=== PATIENT | female | born 1965 ===

== ENCOUNTER 2016-12-20 16:11 | Emergency (ER) | payer SELFPAY ==
[2016-12-20] MEDS ORDERED: Ketorolac 30 MG/ML SDV IVPUSH ONE (17:38)
[2016-12-20] MEDS ORDERED: Sodium Chloride 0.9% 1,000 ML IV ONE (17:38)
--- NOTE | 2016-12-20 17:44 | EDM.PDOC ---
ED HPI GENERAL MEDICAL PROBLEM - General Chief Complaint: Upper Extremity Injury/Pain Stated Complaint: ARMPIT,DOWN ARM AND UP BACK SEVERE PAIN, [id number] Time Seen by Provider: 12/20/16 17:38 Source of Information: Reports: Patient History Limitations: Reports: No Limitations - History of Present Illness INITIAL COMMENTS - FREE TEXT/NARRATIVE: c/o 2 weeks h/o pain in left armpit area hurts to raise above shoulder, states hand is always numb, denies trauma, states pain constant throb with occasional sharp shooting when moves it, heat does help little, tried motrin with minimal relief, does not think it's heart pain which she long time ago, states is right handed. Left Arm Pain Score (Numeric/FACES): 5 - Related Data Allergies Allergy/AdvReac Type Severity Reaction Status Date / Time Penicillins Allergy Anaphylactic Verified 12/20/16 17:30 Shock Home Meds: Home Meds Pregabalin [Lyrica] 100 mg PO TID 12/20/16 [History] Sertraline HCl [Zoloft] 50 mg PO DAILY 12/20/16 [History] lamoTRIgine [Lamictal] 100 mg PO DAILY 12/20/16 [History] Review of Systems - Review of Systems Review Of Systems: ROS reveals no pertinent complaints other than HPI. ED EXAM, GENERAL - Physical Exam Exam: See Below Exam Limited By: No Limitations General Appearance: Alert, WD/WN, Mild Distress, Other (distraught) Ears: Hearing Grossly Normal Throat/Mouth: Normal Voice, No Airway Compromise Head: Atraumatic Neck: Non-Tender, Full Range of Motion Respiratory/Chest: No Respiratory Distress Cardiovascular: Regular Rate, Rhythm GI/Abdominal: Soft, Non-Tender Extremities: Other (tender R/P @ deltoid region, NV wnl, no gross D/D. ) Neurological: Alert, Oriented, Normal Cognition, Normal Gait, No Motor/Sensory Deficits Psychiatric: Normal Affect, Normal Mood Skin Exam: Warm, Dry, Normal Color Lymphatic: No Adenopathy Course - Vital Signs Last Recorded V/S: Last Vital Signs Temp 36.3 C 12/20/16 19:11 Pulse 91 12/20/16 19:11 Resp 18 12/20/16 19:11 BP 146/100 H 12/20/16 19:11 Pulse Ox 95 12/20/16 19:11 - Orders/Labs/Meds Orders: Active Orders 24 hr Category Date Time Status Chest 1V Frontal [CR] Urgent Exams 12/20/16 18:25 Taken Shoulder 1V Lt [CR] Urgent Exams 12/20/16 18:25 Taken Orphenadrine [Norflex] Med 12/20/16 19:30 Ordered 60 mg IM Q12H Sodium Chloride 0.9% [Normal Saline] 1,000 ml Med 12/20/16 17:38 Active IV .BOLUS Medication Orders Sodium Chloride (Normal Saline) 1,000 mls @ 500 mls/hr IV .BOLUS ONE Stop: 12/20/16 19:37 Last Admin: 12/20/16 17:47 Dose: 500 mls/hr Orphenadrine Citrate (Norflex) 60 mg IM Q12H GWENDOLYN Labs: Laboratory Tests 12/20/16 12/20/16 12/20/16 Range/Units 17:43 17:43 17:43 WBC 15.9 H (5.0-10.0) 10^3/uL RBC 3.65 L (4.2-5.4) 10^6/uL Hgb 12.3 (12.0-16.0) g/dL Hct 37.4 (37.0-47.0) % MCV 102.5 H (80-100) fL MCH 33.7 (27.0-34.0) pg MCHC 32.9 L (33.0-35.0) g/dL Plt Count 252 (150-450) 10^3/uL Neut % (Auto) 57.5 (42.2-75.2) % Lymph % (Auto) 28.9 (20.5-50.1) % Cuming % (Auto) 11.8 H (2-8) % Eos % (Auto) 1.4 (1.0-3.0) % Baso % (Auto) 0.4 (0.0-1.0) % Add Manual Diff Yes Neutrophils % (Manual) 66 % Lymphocytes % (Manual) 28 % Monocytes % (Manual) 6 % D-Dimer, Quantitative < 100 (0-400) ng/mL Sodium 139 (135-145) mmol/L Potassium 4.7 (3.6-5.0) mmol/L Chloride 102 (101-111) mmol/L Carbon Dioxide 26.0 (21.0-31.0) mmol/L Anion Gap 15.7 BUN 21 H (7-18) mg/dL Creatinine 0.5 L (0.6-1.3) mg/dL Est Cr Clr Drug Dosing 116.95 mL/min Estimated GFR (MDRD) > 60 BUN/Creatinine Ratio 42.00 Glucose 105 (74-105) mg/dL Calcium 9.4 (8.4-10.2) mg/dl Total Bilirubin 0.5 (0.2-1.0) mg/dL AST 26 (10-42) IU/L ALT 26 (10-60) IU/L Alkaline Phosphatase 64 (42-121) IU/L Troponin I < 0.02 (0.00-0.02) ng/ml Total Protein 6.9 (6.7-8.2) g/dl Albumin 4.0 (3.2-5.5) g/dl Globulin 2.9 Albumin/Globulin Ratio 1.38 Meds: Medications Generic Name Dose Route Start Last Admin Trade Name Freq PRN Reason Stop Dose Admin Sodium Chloride 1,000 mls @ 500 mls/hr 12/20/16 17:38 12/20/16 17:47 Normal Saline IV 12/20/16 19:37 500 mls/hr .BOLUS ONE Administration Orphenadrine Citrate 60 mg 12/20/16 19:30 Norflex IM Q12H GWENDOLYN Discontinued Medications Generic Name Dose Route Start Last Admin Trade Name Freq PRN Reason Stop Dose Admin Ketorolac Tromethamine 15 mg 12/20/16 17:38 12/20/16 17:47 Toradol IVPUSH 12/20/16 17:39 15 mg ONETIME ONE Administration Morphine Sulfate 2 mg 12/20/16 18:27 12/20/16 18:45 Morphine IVPUSH 12/20/16 18:28 2 mg ONETIME ONE Administration Ondansetron HCl 4 mg 12/20/16 18:27 12/20/16 18:44 Zofran IV 12/20/16 18:28 4 mg ONETIME ONE Administration - Re-Assessments/Exams Free Text/Narrative Re-Assessment/Exam: 12/20/16 18:28 results discussed with pt feeling somewhat better s/p IV toradol. 12/20/16 19:26 results discussed with pt who is better but not 100%. will try norflex. Departure - Departure Time of Disposition: 19:27 Disposition: Home, Self-Care 01 Condition: Good Clinical Impression: Brachial plexus disorders Shoulder pain, left Qualifiers: Chronicity: acute Qualified Code(s): M25.512 - Pain in left shoulder - Discharge Information Instructions: Shoulder Pain, [id number] Forms: ED Department Discharge Additional Instructions: 1) continue ice or heat to sore area 2) see Neurologist when arrive home for possible BRACHIAL PLEXUS SYNDROME 3) recheck if there is any change or concern rx given; flexeril 10mg bid prn x 12 vicodin 5/325mg bid prn x 12 - My Orders Last 24 Hours: My Active Orders 12/20/16 17:38 Sodium Chloride 0.9% [Normal Saline] 1,000 ml IV .BOLUS 12/20/16 18:25 Chest 1V Frontal [CR] Urgent Shoulder 1V Lt [CR] Urgent 12/20/16 19:30 Orphenadrine [Norflex] 60 mg IM Q12H - Assessment/Plan Last 24 Hours: My Active Orders 12/20/16 17:38 Sodium Chloride 0.9% [Normal Saline] 1,000 ml IV .BOLUS 12/20/16 18:25 Chest 1V Frontal [CR] Urgent Shoulder 1V Lt [CR] Urgent 12/20/16 19:30 Orphenadrine [Norflex] 60 mg IM Q12H
[2016-12-20 18:14] LABS: CHLORIDE,CL 102 mmol/L (101-111); SODIUM,NA 139 mmol/L (135-145)
[2016-12-20] MEDS ORDERED: Morphine 2 MG/ML Syringe IVPUSH ONE (18:27)
[2016-12-20] MEDS ORDERED: Ondansetron 4 MG/2 ML SDV IV ONE (18:27)
[2016-12-20 19:43] VITALS: BP 139/84
== END 2016-12-20 19:40 | disposition home or self-care (01) ==
LOC: DL.ED 16:11
DX: G54.0 Brachial plexus disorders (principal); M25.512 Pain in left shoulder; Z88.0 Allergy status to penicillin; Z79.899 Other long term (current) drug therapy
CPT/HCPCS: 36415; 71010; 73020; 80053; 84484; 85025; 85379; 96361; 96372; 96374; 96375; 99284; J1885; J2270; J2360; J2405; J7030; 99283